=== PATIENT | female | born 1985 | race Caucasian/White ===

== ENCOUNTER 2019-01-31 15:06 | Outpatient (CLI) | payer BC ==
--- NOTE | 2019-01-31 16:23 | ULT ---
EXAM: OB ultrasound COMPARISON: None HISTORY: female. Evaluate size, dates, and anatomy. TECHNIQUE: Multiplanar grayscale and color Doppler images were obtained in a transabdominal ult rasound. FINDINGS: There is a single live intrauterine with heart rate of 155 bpm. A survey wa s performed which is unremarkable. The head, intracranial structures, heart, stomach, kidneys, umbilical cord, umbilical cord insertion, spine, face, and extremities were evaluated and were unrema rkable. Estimated weight is 249 g. Average age of the fetus based off today's examination is 18 weeks 3 days. BPD 3.97 cm -- 18 weeks 0 days HC 15.61 cm -- 18 weeks 4 days AC 12.93 cm -- 18 weeks 3 days FL 2.88 cm -- 18 weeks 6 days The placenta is posterior in location without focal abnormality. Amniotic fluid volume is subjectivel y within normal limits. The cervix is normal in length. There is no evidence of placenta previa. IMPRESSION: Single live intrauterine with estimated age of 18 weeks 3 days.
== END 2019-01-31 15:07 | disposition home or self-care (01) ==
LOC: SCSULT 15:06
PROVIDERS: ATTEND Family Medicine
DX: Z34.82 Encounter for supervision of other normal pregnancy, second trimester (principal); Z3A.18 18 weeks gestation of pregnancy
CPT/HCPCS: 76805

== ENCOUNTER 2019-06-16 19:15 | Inpatient (IN) | payer BC ==
[2019-06-16] MEDS ORDERED: Misoprostol 200 MCG TAB PR PRN (19:58)
[2019-06-16] MEDS ORDERED: hydrALAZINE 20 MG/ML VIAL SLOW IVP PRN (19:58)
[2019-06-16] MEDS ORDERED: NS / Oxytocin 40 units/1000ml 1,000 ML IV PRN (19:58)
[2019-06-16] MEDS ORDERED: Acetaminophen/Codeine 30-300mg Tablet PO PRN (19:58)
[2019-06-16] MEDS ORDERED: Acetaminophen 500 MG TAB PO PRN (19:58)
[2019-06-16] MEDS ORDERED: Promethazine HCl 25 MG/ML VIAL IM PRN ×2 (19:58→23:51)
[2019-06-16] MEDS ORDERED: Butorphanol Tartrate 1 MG/ML VIAL SLOW IVP PRN (19:58)
[2019-06-16] MEDS ORDERED: Lidocaine 1% (PF) 30 ML VIAL SC PRN (19:58)
[2019-06-16] MEDS ORDERED: Ondansetron PF 4 MG/2 ML Vial IVP PRN ×2 (19:58→23:51)
[2019-06-16] MEDS ORDERED: HYDROcodone/Acetaminophen 5/325 mg Tablet PO PRN (19:58)
[2019-06-16] MEDS ORDERED: NS w/ Oxytocin 10 units 500 ML IV SCH ×2 (19:58)
[2019-06-16] MEDS ORDERED: Methylergonovine 0.2 MG/ML VIAL IM PRN (19:58)
[2019-06-16] MEDS ORDERED: Ibuprofen 800 MG TAB PO PRN (19:58)
[2019-06-16] MEDS ORDERED: Misoprostol 100 MCG TAB VAG SCH (20:00)
[2019-06-16] MEDS ORDERED: Penicillin G Potassium 5 MILL.UNITS in Sodium Chloride 0.9% 100 ML IVPB SCH (20:15)
[2019-06-16 20:24] VITALS: BMI 31.9
[2019-06-16 21:47] LABS: Hemoglobin 11.9 g/dL (12.0-16.0); Mean Corpuscular HGB CONC 34.1 g/dL (32.0-36.0); Mean Corpuscular Hemoglobin 29.9 pg (27.0-31.0); Mean Corpuscular Volume 87.8 fL (78.0-98.0); Platelet Count 164 thou/uL (130-400); RBC Distribution Width 13.9 % (11.5-14.5); Red Blood Cell (RBC) Count 3.98 mill/uL (4.20-5.40); White Blood Cell (WBC) Count 10.3 thou/uL (4.8-10.8)
[2019-06-16] MEDS: Lactated Ringer's 1,000 ML IV SCH (21:47)
[2019-06-16 22:49] LABS: Syphilis Antibody Nonreactive (Nonreactive); Syphilis Antibody Index 0.13 S/CO (<1.00 Non-Reactive)
[2019-06-16] MEDS ORDERED: Lidocaine 1.5%/Epinephrine 1:200,000 5 ML AMPUL IJ ONE (23:06)
[2019-06-16] MEDS ORDERED: Fentanyl 4 mcg/Bup 0.1% Cadd 100 ML ONE (23:06)
[2019-06-16 23:33] LABS: HBSAg Index 0.15 S/CO (0-0.99); Hep B Surf Ag Non-Reactive S/CO (NonReactive)
[2019-06-16] MEDS ORDERED: Fentanyl 4 mcg/Bupivacaine 0.1% Cassette 100 ML EPIDURAL SCH (23:45)
[2019-06-16] MEDS ORDERED: Communication Order-Pharmacy FS SCH (23:45)
[2019-06-16] MEDS ORDERED: Lactated Ringer's 500 ML IV PRN (23:51)
[2019-06-16] MEDS ORDERED: diphenhydrAMINE 50 MG/ML VIAL IVP PRN (23:51)
[2019-06-16] MEDS ORDERED: ePHEDrine/0.9% NaCl/PF SYRINGE 50 mg/10 ml SLOW IVP PRN (23:51)
[2019-06-16] MEDS ORDERED: Acetaminophen 325 MG TAB PO PRN (23:51)
[2019-06-16] MEDS ORDERED: Naloxone HCl 0.4 mg/ml Vial IVP PRN ×2 (23:51)
[2019-06-17] MEDS: Penicillin G 2.5 MILL.units 2.5 MILL.UNITS in Premix Bag 1 BAG IVPB SCH ×2 (01:44→18:09)
[2019-06-17] MEDS ORDERED: Lidocaine 1% (PF) 30 ML VIAL ONE (05:56)
[2019-06-17] MEDS ORDERED: Preparation H Ointment 28 GM TUBE PR PRN (08:05)
[2019-06-17] MEDS ORDERED: Ondansetron PF 4 MG/2 ML Vial IVP PRN (08:05)
[2019-06-17] MEDS ORDERED: NS / Oxytocin 40 units/1000ml 1,000 ML IV SCH (08:05)
[2019-06-17] MEDS ORDERED: diphenhydrAMINE 25 MG CAP PO PRN (08:05)
[2019-06-17] MEDS ORDERED: Benzocaine-Menthol 82.5 ML CAN TOP PRN (08:05)
[2019-06-17] MEDS ORDERED: Bisacodyl 10 MG SUPP PR PRN (08:05)
[2019-06-17] MEDS ORDERED: hydrALAZINE 20 MG/ML VIAL SLOW IVP PRN (08:05)
[2019-06-17] MEDS ORDERED: Acetaminophen/Codeine 30-300mg Tablet PO PRN (08:05)
[2019-06-17] MEDS ORDERED: Lanolin Ointment 7 GM TUBE TOP PRN (08:05)
[2019-06-17] MEDS ORDERED: Milk Of Magnesia 30 ML UDCUP PO PRN (08:05)
[2019-06-17] MEDS ORDERED: HYDROcodone/Acetaminophen 5/325 mg Tablet PO PRN (08:05)
[2019-06-17] MEDS: Acetaminophen 500 MG TAB PO PRN ×2 (12:38→21:22)
[2019-06-17] MEDS: Prenatal Vitamin 1 TAB PO SCH (12:39)
[2019-06-17] MEDS: Docusate Calcium (SURFAK) 240 MG CAP PO SCH ×2 (12:40→20:58)
[2019-06-17] MEDS: Ferrous Sulfate 325 MG TAB PO SCH (18:07)
[2019-06-17] MEDS: Lactated Ringer's 1,000 ML IV SCH (18:08)
[2019-06-17] MEDS: Ibuprofen 800 MG TAB PO SCH (18:08)
[2019-06-18] MEDS: Ibuprofen 800 MG TAB PO SCH ×2 (01:05→06:54)
[2019-06-18] MEDS: Acetaminophen 500 MG TAB PO PRN (05:24)
[2019-06-18] MEDS ORDERED: Simethicone Chewable 80 MG TAB PO PRN (07:49)
[2019-06-18 07:59] VITALS: BP 117/56; TEMP 98.5
[2019-06-18] MEDS: Prenatal Vitamin 1 TAB PO SCH (09:30)
[2019-06-18] MEDS: Docusate Calcium (SURFAK) 240 MG CAP PO SCH (09:30)
[2019-06-18] MEDS: Ferrous Sulfate 325 MG TAB PO SCH (09:30)
== END 2019-06-18 11:30 | disposition home or self-care (01) | DRG 807 ==
LOC: L&D 19:32 → 3SW 06-17 08:44
PROVIDERS: ADMIT Family Medicine; ATTEND Family Medicine
PROC: 10E0XZZ Delivery of Products of Conception, External Approach (ICD-10-PCS; principal; 2019-06-17)
DX: O80 Encounter for full-term uncomplicated delivery (principal); Z37.0 Single live birth; Z3A.39 39 weeks gestation of pregnancy
CPT/HCPCS: 36415; 51702; 85027; 86780; 86850; 86900; 86901; 87340; J2001; J2540; J2590; J3490

== ENCOUNTER 2021-03-01 10:42 | Outpatient (CLI) | payer BC | END 2021-03-01 10:43 | disposition home or self-care (01) | LOC: BICRAD 10:42 | PROVIDERS: ATTEND Family Medicine | DX: R50.9 Fever, unspecified (principal) | CPT/HCPCS: 71046 ==